=== PATIENT | female | born 1935 | race Caucasian/White ===

== ENCOUNTER → 2016-11-02 15:39 | Outpatient (CLI) | payer MEDICARE, OTHER ==
[2014-06-14 09:01] VITALS: BMI 27.4
[~2016-11-02 15:39] MED LIST: ACETAMINOPHEN325 MG PEG; ACETAMINOPHEN500 M1 PT; ACYCLOVIR TOPICAL; CALTRATE 600 M600 M1 PO; CARAFATE1 G/10 ML PT; CARDIZEM60 MG PT; D5 1/2NS 10001000 ML IV; DIOVAN HCT 80-11 TAB PO; DULCOLAX10 MG/SUPP RC; FERRLECIT62.5 MG/2 IVPB; GUAIFENESI100 MG/5 M PT; HYDROCODON-ACE1 EAC7 PO; LACTINEX GRANUL1 PCK GT; LACTINEX GRANUL1 PCK PT; LANTUS SOL100 UNIT/1 SQ; LIDOCAINE HC10 MG/M3 INH; LOVENOX40 MG/0.4 SQ; MAXIPIME 2 GM/D52 G1 IV; MULTI-DAY VITAM1 TAB PO; MYCAMINE 100MG100 M1 IV; NEUPOGEN300 MCG/ML SQ; NOVOLIN R100 U/ML SQ; ONCOLOGY MOUTHWA5 ML PO; ONDANSETRON4 MG/2 M3 IV; PERIDEX480 ML MM; POTASSIUM20 MEQ/11 PT; PRAVACHOL20 MG PO; PREDNISONE20 MG PO; PRILOSEC20 MG PO; RED YEAST RICE600 MG PO; REGLAN SOL10 MG/10 M PT; SALINE FLUSH10 ML IV; TOBI 300 M300 MG/5 M INH; TOBRAMYCIN S40 MG/M1 IV; VANCOMYCIN 500500 MG IV; VASOPRESSIN 20 UNIT/ML IV; XANAX0.25 MG PEG; XOPENEX 0.0.63 MG/3 UPD
== END | disposition home or self-care (01) ==
LOC: D.LABREF 15:39
DX: M10.9 Gout, unspecified (principal)

== ENCOUNTER → 2017-05-10 08:48 | Outpatient (CLI) | payer MEDICARE, OTHER ==
[2014-06-14 09:01] VITALS: BMI 27.4
== END | disposition home or self-care (01) ==
LOC: D.LAB 08:48
DX: M81.0 Age-related osteoporosis without current pathological fracture (principal)

== ENCOUNTER → 2017-09-13 11:34 | Outpatient (CLI) | payer MEDICARE, OTHER ==
[2014-06-14 09:01] VITALS: BMI 27.4
[2017-09-20 03:10] LABS: OVA + PARASITE EXAM Final report (())
== END | disposition home or self-care (01) ==
LOC: D.LABREF 11:34
PROVIDERS: Internal Medicine Gastroenterology
DX: R19.7 Diarrhea, unspecified (principal); R12 Heartburn

== ENCOUNTER 2018-10-04 13:57 | Emergency (ER) | payer MEDICARE, OTHER ==
[~2018-10-04] VITALS: Ht 160 cm; Wt 61.4 kg
[2018-10-04 14:06] VITALS: Ht 160 cm; Wt 61.4 kg
[2018-10-04] MEDS ORDERED: PREDNISONE10 MG PO (15:58)
[2018-10-04 16:05] VITALS: BP 154/062
== END 2018-10-04 16:13 | disposition home or self-care (01) ==
LOC: D.ER 13:57
DX: M10.032 Idiopathic gout, left wrist (principal); I10 Essential (primary) hypertension